=== PATIENT | female | born 1960 | race Caucasian/White ===

== ENCOUNTER 2018-11-29 15:35 | Emergency (ER) | payer OTHER | END 2018-11-29 18:45 | disposition home or self-care (01) | LOC: FTE 18:45 | DX: S99.922A Unspecified injury of left foot, initial encounter (principal); W20.8XXA Other cause of strike by thrown, projected or falling object, initial encounter; Y92.9 Unspecified place or not applicable | CPT/HCPCS: 73610; 73630-LT; 99283-25 ==